=== PATIENT | male | born 1970 | race Caucasian/White ===

== ENCOUNTER 2020-11-26 09:56 | Outpatient (CLI) | payer BC | END 2020-11-26 09:57 | disposition home or self-care (01) | LOC: CSHWCC 09:56 | PROVIDERS: ATTEND Nurse Practitioner Family | DX: T81.89XD Other complications of procedures, not elsewhere classified, subsequent encounter (principal); I87.2 Venous insufficiency (chronic) (peripheral); T86.821 Skin graft (allograft) (autograft) failure; E11.621 Type 2 diabetes mellitus with foot ulcer; L97.509 Non-pressure chronic ulcer of other part of unspecified foot with unspecified severity; E11.40 Type 2 diabetes mellitus with diabetic neuropathy, unspecified; E11.65 Type 2 diabetes mellitus with hyperglycemia; G90.09 Other idiopathic peripheral autonomic neuropathy; I10 Essential (primary) hypertension; Z98.890 Other specified postprocedural states | CPT/HCPCS: 11042 ==

== ENCOUNTER 2020-12-10 09:04 | Outpatient (CLI) | payer BC | END 2020-12-10 09:05 | disposition home or self-care (01) | LOC: CSHWCC 09:04 | PROVIDERS: ATTEND Nurse Practitioner Family | DX: T81.89XD Other complications of procedures, not elsewhere classified, subsequent encounter (principal); E11.40 Type 2 diabetes mellitus with diabetic neuropathy, unspecified; E11.65 Type 2 diabetes mellitus with hyperglycemia; E11.621 Type 2 diabetes mellitus with foot ulcer; G90.09 Other idiopathic peripheral autonomic neuropathy; I10 Essential (primary) hypertension; I87.2 Venous insufficiency (chronic) (peripheral); T86.821 Skin graft (allograft) (autograft) failure; Z98.890 Other specified postprocedural states | CPT/HCPCS: 99213; G0463 ==

== ENCOUNTER 2020-12-31 08:24 | Outpatient (CLI) | payer BC | END 2020-12-31 08:25 | disposition home or self-care (01) | LOC: CSHWCC 08:24 | PROVIDERS: ATTEND Nurse Practitioner Family | DX: T81.89XD Other complications of procedures, not elsewhere classified, subsequent encounter (principal); I87.2 Venous insufficiency (chronic) (peripheral); T86.821 Skin graft (allograft) (autograft) failure; E11.621 Type 2 diabetes mellitus with foot ulcer; L97.509 Non-pressure chronic ulcer of other part of unspecified foot with unspecified severity; E11.40 Type 2 diabetes mellitus with diabetic neuropathy, unspecified; E11.65 Type 2 diabetes mellitus with hyperglycemia; G90.09 Other idiopathic peripheral autonomic neuropathy; I10 Essential (primary) hypertension; Z98.890 Other specified postprocedural states | CPT/HCPCS: 11042; 99212; G0463 ==

== ENCOUNTER 2021-02-18 08:25 | Outpatient (CLI) | payer BC | END 2021-02-18 08:26 | disposition home or self-care (01) | LOC: CSHWCC 08:25 | PROVIDERS: ATTEND Nurse Practitioner Family | DX: T81.89XD Other complications of procedures, not elsewhere classified, subsequent encounter (principal); I87.2 Venous insufficiency (chronic) (peripheral); T86.821 Skin graft (allograft) (autograft) failure; E11.621 Type 2 diabetes mellitus with foot ulcer; L97.509 Non-pressure chronic ulcer of other part of unspecified foot with unspecified severity; E11.40 Type 2 diabetes mellitus with diabetic neuropathy, unspecified; E11.65 Type 2 diabetes mellitus with hyperglycemia; G90.09 Other idiopathic peripheral autonomic neuropathy; I10 Essential (primary) hypertension; Z98.890 Other specified postprocedural states ==

== ENCOUNTER 2021-04-22 09:08 | Outpatient (CLI) | payer BC, SELFPAY | END 2021-04-22 09:09 | disposition home or self-care (01) | LOC: CSHWCC 09:08 | PROVIDERS: ATTEND Nurse Practitioner Family | DX: E11.621 Type 2 diabetes mellitus with foot ulcer (principal); E11.40 Type 2 diabetes mellitus with diabetic neuropathy, unspecified; E11.65 Type 2 diabetes mellitus with hyperglycemia; L97.512 Non-pressure chronic ulcer of other part of right foot with fat layer exposed; L97.522 Non-pressure chronic ulcer of other part of left foot with fat layer exposed; G90.09 Other idiopathic peripheral autonomic neuropathy; I10 Essential (primary) hypertension; I87.2 Venous insufficiency (chronic) (peripheral); T86.821 Skin graft (allograft) (autograft) failure; Z89.411 Acquired absence of right great toe; Z98.890 Other specified postprocedural states | CPT/HCPCS: 11042; 87070; 87186; 87205; 99213; G0463 ==

== ENCOUNTER 2021-06-25 08:40 | Outpatient (CLI) | payer BC | END 2021-06-25 08:41 | disposition home or self-care (01) | LOC: CSHWCC 08:40 | PROVIDERS: ATTEND Nurse Practitioner Family | DX: T81.89XD Other complications of procedures, not elsewhere classified, subsequent encounter (principal); E11.621 Type 2 diabetes mellitus with foot ulcer; L97.512 Non-pressure chronic ulcer of other part of right foot with fat layer exposed; E11.40 Type 2 diabetes mellitus with diabetic neuropathy, unspecified; E11.65 Type 2 diabetes mellitus with hyperglycemia; A48.0 Gas gangrene; G90.09 Other idiopathic peripheral autonomic neuropathy; I10 Essential (primary) hypertension; I87.2 Venous insufficiency (chronic) (peripheral); T86.821 Skin graft (allograft) (autograft) failure; Z89.411 Acquired absence of right great toe; Z98.890 Other specified postprocedural states | CPT/HCPCS: 97607; 99213; G0463 ==

== ENCOUNTER 2021-06-29 07:57 | Outpatient (CLI) | payer BC | END 2021-06-29 07:58 | disposition home or self-care (01) | LOC: CSHWCC 07:57 | PROVIDERS: ATTEND Nurse Practitioner Family | DX: T81.89XD Other complications of procedures, not elsewhere classified, subsequent encounter (principal); A48.0 Gas gangrene; E11.65 Type 2 diabetes mellitus with hyperglycemia; E11.621 Type 2 diabetes mellitus with foot ulcer; L97.512 Non-pressure chronic ulcer of other part of right foot with fat layer exposed; G90.09 Other idiopathic peripheral autonomic neuropathy; I10 Essential (primary) hypertension; I87.2 Venous insufficiency (chronic) (peripheral); T86.821 Skin graft (allograft) (autograft) failure; Z89.411 Acquired absence of right great toe; Z98.890 Other specified postprocedural states | CPT/HCPCS: 99213; G0463 ==

== ENCOUNTER 2021-07-06 07:55 | Outpatient (CLI) | payer BC | END 2021-07-06 07:56 | disposition home or self-care (01) | LOC: CSHWCC 07:55 | PROVIDERS: ATTEND Nurse Practitioner Family | DX: A48.0 Gas gangrene (principal); T81.89XD Other complications of procedures, not elsewhere classified, subsequent encounter; T86.821 Skin graft (allograft) (autograft) failure; I87.2 Venous insufficiency (chronic) (peripheral); E11.621 Type 2 diabetes mellitus with foot ulcer; L97.512 Non-pressure chronic ulcer of other part of right foot with fat layer exposed; E11.40 Type 2 diabetes mellitus with diabetic neuropathy, unspecified; E11.65 Type 2 diabetes mellitus with hyperglycemia; E11.43 Type 2 diabetes mellitus with diabetic autonomic (poly)neuropathy; I10 Essential (primary) hypertension; Z89.411 Acquired absence of right great toe; Z98.890 Other specified postprocedural states | CPT/HCPCS: 11042; 99213; G0463 ==

== ENCOUNTER 2021-07-27 08:09 | Outpatient (CLI) | payer BC | END 2021-07-27 08:10 | disposition home or self-care (01) | LOC: CSHWCC 08:09 | PROVIDERS: ATTEND Nurse Practitioner Family | DX: A48.0 Gas gangrene (principal); T81.89XD Other complications of procedures, not elsewhere classified, subsequent encounter; T86.821 Skin graft (allograft) (autograft) failure; I87.2 Venous insufficiency (chronic) (peripheral); E11.621 Type 2 diabetes mellitus with foot ulcer; L97.512 Non-pressure chronic ulcer of other part of right foot with fat layer exposed; S91.115D Laceration without foreign body of left lesser toe(s) without damage to nail, subsequent encounter; E11.40 Type 2 diabetes mellitus with diabetic neuropathy, unspecified; E11.65 Type 2 diabetes mellitus with hyperglycemia; E11.43 Type 2 diabetes mellitus with diabetic autonomic (poly)neuropathy; I10 Essential (primary) hypertension; Z98.890 Other specified postprocedural states; Z89.411 Acquired absence of right great toe | CPT/HCPCS: 11042; 99213; G0463 ==

== ENCOUNTER 2021-08-10 09:13 | Outpatient (CLI) | payer BC | END 2021-08-10 09:14 | disposition home or self-care (01) | LOC: CSHWCC 09:13 | PROVIDERS: ATTEND Nurse Practitioner Family | DX: T81.89XD Other complications of procedures, not elsewhere classified, subsequent encounter (principal); E11.621 Type 2 diabetes mellitus with foot ulcer; L97.512 Non-pressure chronic ulcer of other part of right foot with fat layer exposed; A48.0 Gas gangrene; E11.40 Type 2 diabetes mellitus with diabetic neuropathy, unspecified; E11.65 Type 2 diabetes mellitus with hyperglycemia; G90.09 Other idiopathic peripheral autonomic neuropathy; I10 Essential (primary) hypertension; I87.2 Venous insufficiency (chronic) (peripheral); T86.821 Skin graft (allograft) (autograft) failure; Z89.411 Acquired absence of right great toe; Z98.890 Other specified postprocedural states | CPT/HCPCS: 99213; G0463 ==

== ENCOUNTER 2021-09-08 08:15 | Outpatient (CLI) | payer BC | END 2021-09-08 08:16 | disposition home or self-care (01) | LOC: CSHWCC 08:15 | PROVIDERS: ATTEND Nurse Practitioner Family | DX: A48.0 Gas gangrene (principal); T81.89XD Other complications of procedures, not elsewhere classified, subsequent encounter; T86.821 Skin graft (allograft) (autograft) failure; I87.2 Venous insufficiency (chronic) (peripheral); S91.115D Laceration without foreign body of left lesser toe(s) without damage to nail, subsequent encounter; E11.621 Type 2 diabetes mellitus with foot ulcer; L97.512 Non-pressure chronic ulcer of other part of right foot with fat layer exposed; E11.43 Type 2 diabetes mellitus with diabetic autonomic (poly)neuropathy; I10 Essential (primary) hypertension; Z89.411 Acquired absence of right great toe; Z98.890 Other specified postprocedural states ==